=== PATIENT | male | born 1955 | race Caucasian/White ===

== ENCOUNTER → 2017-06-25 | Outpatient (CLI) | payer MEDICAID | LOC: BRMIMAGING 10:36 | PROVIDERS: ATTEND Registered Nurse | DX: M17.11 Unilateral primary osteoarthritis, right knee (principal) | CPT/HCPCS: 73560-PO ==

== ENCOUNTER → 2018-08-05 | Outpatient (CLI) | payer MEDICAID | LOC: BRMIMAGING 14:04 | PROVIDERS: ATTEND Family Medicine | DX: J44.9 Chronic obstructive pulmonary disease, unspecified (principal) | CPT/HCPCS: 71046-PO ==